=== PATIENT | female | born 1955 | race Caucasian/White ===

== ENCOUNTER 2018-11-19 15:07 | Emergency (ER) | payer MEDICARE, BC ==
[~2018-11-19] VITALS: Ht 165.1 cm; Wt 70.9 kg
[~2018-11-19 15:07] MED LIST: ALENDRONATE SOD70 MG PO; CALCIUM 600+D T1 TA1 PO; CORDARONE200 MG PO; ESTRACE1 MG PO; FISH OIL 1,0001 CA1 PO; LOPRESSOR25 MG PO; TOPROL XL50 MG PO
[2018-11-19 15:20] VITALS: Ht 165.1 cm; Wt 70.9 kg
[2018-11-19] MEDS ORDERED: EFFEXOR37.5 MG PO (15:22)
[2018-11-19] MEDS ORDERED: BETAPACE160 MG PO (15:22)
[2018-11-19] MEDS ORDERED: FISH OIL 1,0001 CA1 PO (15:23)
[2018-11-19] MEDS ORDERED: CALTRATE+D3 PL1 EACH PO (15:23)
[2018-11-19] MEDS ORDERED: VITAMIN D5000 UNIT PO (15:23)
[2018-11-19] MEDS ORDERED: ZANTAC300 MG PO (15:24)
[2018-11-19] MEDS ORDERED: COREG 3.1253.125 MG PO (15:24)
[2018-11-19 18:08] VITALS: BP 140/74
== END 2018-11-19 18:09 | disposition home or self-care (01) ==
LOC: D.ER 15:07
DX: T82.897A Other specified complication of cardiac prosthetic devices, implants and grafts, initial encounter (principal)